=== PATIENT | male | born 1970 | race Caucasian/White ===

== ENCOUNTER 2023-01-07 16:13 | Emergency (ER) | payer MEDICAID ==
[~2023-01-07] VITALS: Ht 182.9 cm; Wt 113.6 kg
[2023-01-07 16:55] LABS: BASOPHILS % (AUTO) 0.5 % (0-1); EOSINOPHILS # (AUTO) 0.2 X10'3 (0-0.9); EOSINOPHILS % (AUTO) 2.2 % (0-6); HEMATOCRIT 41.5 % (42.0-52.0); HEMOGLOBIN 14.4 g/dl (14.0-17.9); LYMPHOCYTES # (AUTO) 0.8 X10'3 (1.1-4.8); LYMPHOCYTES % (AUTO) 7.8 % (21-51); MEAN CORPUSCULAR HGB CONC 34.7 g/dL (33.0-36.5); MEAN CORPUSCULAR VOLUME 92.2 FL (78-98); MEAN PLATELET VOLUME 6.5 FL (7.4-10.4); MONOCYTES # (AUTO) 1.7 X10'3 (0-0.9); MONOCYTES % (AUTO) 15.9 % (2-12); NEUTROPHILS # (AUTO) 7.8 X10'3 (1.8-7.7); NEUTROPHILS % (AUTO) 73.6 % (42-75); PLATELET COUNT 206 X10'3 (140-440); WHITE BLOOD COUNT 10.6 X10'3 (4.5-11.0)
[2023-01-07 17:10] LABS: ALANINE AMINOTRANSFERASE 24 U/L (12-78); ALBUMIN 3.2 G/DL (3.4-5.0); ALBUMIN/GLOBULIN RATIO 0.6 (1.1-1.5); ALKALINE PHOSPHATASE 90 IU/L (46-116); ANION GAP 8 (8-16); ASPARTATE AMINO TRANSFERASE 34 U/L (10-37); BILIRUBIN,TOTAL 1.2 MG/DL (0.1-1.0); BLOOD UREA NITROGEN 10 MG/DL (7-18); BUN/CREATININE RATIO 11.9 (10.0-20.0); CALCIUM 8.8 MG/DL (8.5-10.1); CHLORIDE 100 MMOL/L (99-107); CREATININE 0.84 MG/DL (0.60-1.10); GLUCOSE 143 MG/DL (70-104); POTASSIUM 3.2 MMOL/L (3.5-5.1); SODIUM 134 MMOL/L (135-145); TOTAL CARBON DIOXIDE 26.5 MMOL/L (24-32); TOTAL PROTEIN 8.3 G/DL (6.4-8.2); eGFR > 90 ML/MIN
--- NOTE | 2023-01-07 18:12 | NUR ---
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
[2023-01-07 18:29] VITALS: BP 187/95
[2023-01-07 18:45] LABS: TOTAL CELLS COUNTED 100
[2023-01-07 18:47] LABS: PLATELET ESTIMATE NORMAL
[2023-01-07] MEDS ORDERED: CEPH-585 PO (20:01)
[2023-01-07] MEDS ORDERED: cephalexin 500mg capsule PO ONE (20:05)
[2023-01-07] MEDS ORDERED: PENICILLIN G BENZATHINE 2,400,000 UNIT/4 ML SYRINGE IM ONE (20:10)
== END 2023-01-07 20:31 | disposition home or self-care (01) ==
LOC: ER 16:14
DX: L03.115 Cellulitis of right lower limb (principal); A53.9 Syphilis, unspecified; R21 Rash and other nonspecific skin eruption; I10 Essential (primary) hypertension; F15.20 Other stimulant dependence, uncomplicated; F12.90 Cannabis use, unspecified, uncomplicated
CPT/HCPCS: 36415; 80053; 83605; 83880; 85007; 85025; 85651; 86140; 86592; 87040; 93970; 96372; 99285; J0561

== ENCOUNTER 2023-06-04 03:16 | Emergency (ER) | payer MEDICAID ==
[~2023-06-04] VITALS: Ht 182.9 cm; Wt 113.6 kg
[~2023-06-04 03:16] MED LIST: CEPH-585 PO
[2023-06-04] MEDS ORDERED: ondansetron/PF 4mg/2ml inj IV ONE (03:55)
[2023-06-04] MEDS ORDERED: morphine 4 MG/ML inj SYRINge IV ONE (03:55)
[2023-06-04] MEDS ORDERED: normal saline 1000ml 1,000 ML IV ONE (04:00)
[2023-06-04] MEDS ORDERED: iohexol 350MG/ML 100ml bottle IV ONE (04:05)
[2023-06-04] MEDS: nitroGLYCERIN 0.4mg SUBLingual tab SL PRN ×4 (04:23→10:10)
[2023-06-04 04:24] LABS: BASOPHILS # (AUTO) 0.2 X10'3 (0-0.2); BASOPHILS % (AUTO) 1.8 % (0-1); EOSINOPHILS # (AUTO) 0.1 X10'3 (0-0.9); EOSINOPHILS % (AUTO) 1.3 % (0-6); HEMATOCRIT 50.7 % (42.0-52.0); HEMOGLOBIN 17.9 g/dl (14.0-17.9); LYMPHOCYTES # (AUTO) 1.1 X10'3 (1.1-4.8); LYMPHOCYTES % (AUTO) 12.2 % (21-51); MEAN CORPUSCULAR HEMOGLOBIN 32.5 PG (27.0-31.0); MEAN CORPUSCULAR HGB CONC 35.3 g/dL (33.0-36.5); MEAN CORPUSCULAR VOLUME 92.1 FL (78-98); MEAN PLATELET VOLUME 7.4 FL (7.4-10.4); MONOCYTES # (AUTO) 1.5 X10'3 (0-0.9); MONOCYTES % (AUTO) 17.1 % (2-12); NEUTROPHILS # (AUTO) 5.9 X10'3 (1.8-7.7); NEUTROPHILS % (AUTO) 67.6 % (42-75); PLATELET COUNT 201 X10'3 (140-440); RED CELL DISTRIBUTION WIDTH 13.7 % (11.5-14.5); WHITE BLOOD COUNT 8.7 X10'3 (4.5-11.0)
[2023-06-04 04:27] LABS: ALANINE AMINOTRANSFERASE 32 U/L (12-78); ALBUMIN 3.6 G/DL (3.4-5.0); ALBUMIN/GLOBULIN RATIO 0.8 (1.1-1.5); ALKALINE PHOSPHATASE 69 IU/L (46-116); ANION GAP 9 (8-16); ASPARTATE AMINO TRANSFERASE 33 U/L (10-37); BLOOD UREA NITROGEN 10 MG/DL (7-18); BUN/CREATININE RATIO 12.7 (10.0-20.0); CALCIUM 9.2 MG/DL (8.5-10.1); CHLORIDE 102 MMOL/L (99-107); CREATININE 0.79 MG/DL (0.60-1.10); GLUCOSE 149 MG/DL (70-104); POTASSIUM 3.7 MMOL/L (3.5-5.1); SODIUM 135 MMOL/L (135-145); TOTAL CARBON DIOXIDE 24.5 MMOL/L (24-32); TOTAL PROTEIN 7.9 G/DL (6.4-8.2); eCRCL 123 ML/MIN; eGFR > 90 ML/MIN
[2023-06-04 04:34] LABS: PRO BRAIN NATRIURETIC PEPTIDE 71 PG/ML (0-125)
[2023-06-04] MEDS ORDERED: fentaNYL/PF 50MCG/1 ML 2ML syringe IV ONE (04:40)
[2023-06-04] MEDS ORDERED: LORazepam 2 mg/ml vial IV ONE (04:40)
[2023-06-04 05:06] LABS: BILIRUBIN,URINE NEGATIVE (Neg); CLARITY,URINE CLEAR (Clear); COLOR,URINE YELLOW (Yellow); GLUCOSE, URINE NEGATIVE (Neg); KETONES,URINE NEGATIVE (Neg); LEUKOCYTE ESTERASE ,URINE NEGATIVE (Neg); NITRITES, URINE NEGATIVE (Neg); OCCULT BLOOD,URINE NEGATIVE (Neg); PH,URINE 7.5 (4.8-8.0); PROTEIN,URINE NEGATIVE (Neg)
[2023-06-04 05:12] LABS: UA COLLECTION TYPE CLN CATCH MIDSTREAM
[2023-06-04 05:33] LABS: URINE AMPHETAMINE SCREEN POSITIVE (Neg); URINE BARBITUATE SCREEN NEGATIVE (Neg); URINE BENZODIAZEPINES SCREEN NEGATIVE (Neg); URINE CANNABINOID SCREEN NEGATIVE (Neg); URINE COCAINE SCREEN NEGATIVE (Neg); URINE METHADONE SCREEN NEGATIVE (Neg); URINE OPIATE SCREEN POSITIVE (Neg); URINE PHENCYCLIDINE SCREEN NEGATIVE (Neg)
[2023-06-04] MEDS ORDERED: LISI20TA28 PO (05:50)
[2023-06-04] MEDS ORDERED: albumin 25% 100mL bottle x 1 IV PRN (07:50)
[2023-06-04] MEDS ORDERED: cloNIDine 0.1 mg tablet PO ONE (07:50)
[2023-06-04] MEDS ORDERED: amLODIPine 5mg tablet PO ONE (07:50)
--- NOTE | 2023-06-04 07:55 | NUR ---
REPORTED PTS ELEVATED BP AND PT CONTINUES TO REPORT PAIN OF RUQ ABD PAIN THAT RADIATES TO BACK. ER MD DR EDDY RE-EVALUATING PT AND BP MED TO BE ADMINISTERED.
[2023-06-04 10:02] VITALS: BP 200/113; PULSE 85; RESP 16; O2SAT 96
[2023-06-04 11:48] VITALS: TEMP 97.8
== END 2023-06-04 11:52 | disposition home or self-care (01) ==
LOC: ER 03:16
DX: M54.6 Pain in thoracic spine (principal); R07.89 Other chest pain; I10 Essential (primary) hypertension; F12.90 Cannabis use, unspecified, uncomplicated; F15.90 Other stimulant use, unspecified, uncomplicated; Z79.2 Long term (current) use of antibiotics; Z79.899 Other long term (current) drug therapy; Z72.89 Other problems related to lifestyle
CPT/HCPCS: 36415; 71045; 71275; 74174; 80053; 80305; 81003; 83880; 84484; 85025; 93005; 96361; 96374; 96375; 99285; J2060; J2270; J2405; J3010; J3490; J7030; Q9967

== ENCOUNTER 2023-07-20 22:33 | Emergency (ER) | payer MEDICAID ==
[~2023-07-20] VITALS: Ht 182.9 cm; Wt 109.1 kg
[~2023-07-20 22:33] MED LIST changes: +niCARDipine in NS 40mg/200ml (0.2mg/ml) IVPB IV ONE
[2023-07-20 22:39] VITALS: TEMP 97.1
[2023-07-20] MEDS ORDERED: iohexol 350MG/ML 100ml bottle IV ONE (22:53)
[2023-07-20] MEDS ORDERED: niCARDipine-NS 40mg/200ml IVPB 200 ML IV SCH (23:10)
[2023-07-20 23:41] LABS: APTT 28 SECONDS (22-32); INR 1.1 INR; PROTHROMBIN TIME 11.7 SECONDS (9.0-12.0)
[2023-07-20 23:44] LABS: ALANINE AMINOTRANSFERASE 42 U/L (12-78); ALBUMIN 3.9 G/DL (3.4-5.0); ALBUMIN/GLOBULIN RATIO 0.9 (1.1-1.5); ALKALINE PHOSPHATASE 79 IU/L (46-116); ANION GAP 6 (8-16); ASPARTATE AMINO TRANSFERASE 31 U/L (10-37); BILIRUBIN,TOTAL 1.3 MG/DL (0.1-1.0); BLOOD UREA NITROGEN 10 MG/DL (7-18); BUN/CREATININE RATIO 9.9 (10.0-20.0); CALCIUM 9.2 MG/DL (8.5-10.1); CHLORIDE 102 MMOL/L (99-107); CREATININE 1.01 MG/DL (0.60-1.10); GLUCOSE 106 MG/DL (70-104); POTASSIUM 3.2 MMOL/L (3.5-5.1); SODIUM 137 MMOL/L (135-145); TOTAL CARBON DIOXIDE 29.5 MMOL/L (24-32); TOTAL PROTEIN 8.1 G/DL (6.4-8.2); eCRCL 95 ML/MIN; eGFR 78 ML/MIN
[2023-07-20 23:50] VITALS: BP 159/96; PULSE 92; RESP 16; O2SAT 96
[2023-07-20 23:51] LABS: PRO BRAIN NATRIURETIC PEPTIDE 52 PG/ML (0-125)
--- NOTE | 2023-07-20 23:54 | NUR ---
EMS here to transport patient to [facility].
== END 2023-07-21 01:00 | disposition short-term general hospital (02) ==
LOC: ER 22:34
DX: I63.89 Other cerebral infarction (principal); Z79.899 Other long term (current) drug therapy
CPT/HCPCS: 36415; 70450; 71045; 80053; 82948; 83880; 84484; 85610; 85730; 86885; 86900; 86901; 93005; 96365; 96366; 99291; J3490; 85025; 99285; Q9967

== ENCOUNTER 2024-11-16 16:27 | Emergency (ER) | payer MEDICAID ==
[~2024-11-16] VITALS: Ht 182.9 cm; Wt 113.6 kg
[2024-11-16 16:42] VITALS: TEMP 98.1
[2024-11-16] MEDS ORDERED: AMOX-117 PO (17:22)
[2024-11-16] MEDS: amox tr/potassium clavulanate 875/125mg TAB PO ONE (19:08)
[2024-11-16] MEDS: TETanus/Pertussis (Acell)/Diphther VAC/PF (Tdap-Adult) 0.5ml syringe IMVAC ONE (19:10)
[2024-11-16 19:28] VITALS: BP 130/90; PULSE 70; RESP 16; O2SAT 98
== END 2024-11-16 19:30 | disposition home or self-care (01) ==
LOC: ER 16:27
DX: S61.451A Open bite of right hand, initial encounter (principal); I10 Essential (primary) hypertension; F12.90 Cannabis use, unspecified, uncomplicated; F15.90 Other stimulant use, unspecified, uncomplicated; Z72.89 Other problems related to lifestyle; W54.0XXA Bitten by dog, initial encounter; Y93.89 Activity, other specified; Y92.89 Other specified places as the place of occurrence of the external cause; Y99.8 Other external cause status
CPT/HCPCS: 73130; 90471; 90715; 99283